=== PATIENT | male | born 1990 ===

== ENCOUNTER 2020-07-08 15:07 | Outpatient (REF) | payer OTHER, SELFPAY | END 2020-07-08 15:08 | disposition home or self-care (01) | LOC: HO.LAB 15:07 | PROVIDERS: PCP Internal Medicine; Visit Provider Internal Medicine | DX: Z20.828 Contact with and (suspected) exposure to other viral communicable diseases (principal) | CPT/HCPCS: 87635 ==

== ENCOUNTER 2020-07-19 16:29 | Outpatient (REF) | payer OTHER, SELFPAY | END 2020-07-19 16:30 | disposition home or self-care (01) | LOC: HO.LAB 16:29 | PROVIDERS: Visit Provider Internal Medicine | DX: Z20.828 Contact with and (suspected) exposure to other viral communicable diseases (principal) | CPT/HCPCS: 87635 ==

== ENCOUNTER 2020-07-26 10:25 | Outpatient (REF) | payer OTHER, SELFPAY | END 2020-07-26 10:26 | disposition home or self-care (01) | LOC: HO.LAB 10:25 | PROVIDERS: PCP Internal Medicine; Visit Provider Internal Medicine | DX: Z20.828 Contact with and (suspected) exposure to other viral communicable diseases (principal) | CPT/HCPCS: U0003 ==

== ENCOUNTER 2020-09-20 09:23 | Outpatient (REF) | payer OTHER, SELFPAY | END 2020-09-20 09:24 | disposition home or self-care (01) | LOC: HO.LAB 09:23 | PROVIDERS: Visit Provider Internal Medicine | DX: Z20.828 Contact with and (suspected) exposure to other viral communicable diseases (principal) | CPT/HCPCS: C9803; U0003 ==

== ENCOUNTER 2020-11-03 09:00 | Outpatient (REF) | payer OTHER, SELFPAY | END 2020-11-03 09:01 | disposition home or self-care (01) | LOC: HO.LAB 09:00 | PROVIDERS: Visit Provider Internal Medicine | DX: Z20.822 Contact with and (suspected) exposure to COVID-19 (principal) | CPT/HCPCS: 36415; C9803; U0003; U0005 ==

== ENCOUNTER 2020-11-19 10:14 | Outpatient (REF) | payer OTHER, SELFPAY | END 2020-11-19 10:15 | disposition home or self-care (01) | LOC: HO.LAB 10:14 | PROVIDERS: Visit Provider Internal Medicine | DX: Z20.822 Contact with and (suspected) exposure to COVID-19 (principal) | CPT/HCPCS: 36415; C9803; U0003; U0005 ==

== ENCOUNTER 2021-01-10 10:22 | Outpatient (REF) | payer OTHER, SELFPAY ==
[2021-01-10 11:07] LABS: COVID-19 Test Negative (Negative)
== END 2021-01-10 10:23 | disposition home or self-care (01) ==
LOC: HO.LAB 10:22
PROVIDERS: Visit Provider Internal Medicine
DX: Z20.822 Contact with and (suspected) exposure to COVID-19 (principal)
CPT/HCPCS: 36415; 87635; C9803

== ENCOUNTER 2023-12-01 18:19 | Emergency (ER) | payer OTHER, SELFPAY ==
--- NOTE | 2023-12-01 18:24 | ED_ITS ---
HPI - General Adult General Chief complaint: Nausea/Vomiting/Diarrhea Stated complaint: Vomiting/Nausea Time Seen by Provider: 12/01/23 18:44 Source: patient Mode of arrival: ambulatory Limitations: no limitations History of Present Illness HPI narrative: Patient is a 33-year-old male presenting to the ED with complaint of nausea and vomiting since this morning. Denies diarrhea. Generalized abdominal pain prior to vomiting, none at this time, headache. Son recently sick with similar symptoms. Denies fevers. Emesis non-bloody, non-bilious. MD complaint: nausea and vomiting Onset (ago): hour(s) Location: abdomen Radiation: non-radiation Severity: mild Quality: aching Associated symptoms: nausea/vomiting Treatments prior to arrival: none Related Data Previous Rx's Medication Instructions Recorded ondansetron 4 mg disintegrating 4 mg PO Q8H PRN nausea and 12/01/23 tablet vomiting #12 tabs Allergies Allergy/AdvReac Type Severity Reaction Status Date / Time No Known Allergies Allergy Verified 12/01/23 18:25 [No Known Allergies*] Review of Systems Review of Systems: As per HPI. Yes all other systems are reviewed and are negative Constitutional: Constitutional: Reports as per HPI [facility] Social History Social History Advance Directives: No Advance Directives Information Provided: No Physical Exam ED Vital Signs: Vital Signs - 24 hr 12/01/23 18:25 Temperature 97.7 F Pulse Rate 106 H Respiratory Rate 16 Blood Pressure 114/68 Pulse Oximetry 98 Oxygen Delivery Method Room Air BMI result Body Mass Index 21.5 Vital signs have been reviewed and appear to be correct. Blood pressure normal. Heart rate slightly tachycardic. Respiratory rate normal. Temperature normal. Oxygen saturation normal. Const General: cooperative, healthy appearing and no acute distress Orientation/consciousness: oriented to person, oriented to place, oriented to time and patient oriented x3 Limitations: no limitations HENMT Head: Yes normocephalic and Yes atraumatic Ears: external ears normal General nose exam: Normal external nose present Face and sinus: Yes face symmetric Mouth: oropharynx normal and moist mucous membranes Throat: Yes uvula midline Eyes Pupils: Equal, round and reactive pupils present Neck Neck: Yes normal visual inspection and Yes supple Resp Effort & Inspection: normal respiratory effort and able to speak in complete sentences Auscultation: clear to auscultation bilaterally Cardio Rate: regular rate Rhythm: regular rhythm Heart sounds: S1 normal heart sound present and S2 normal heart sound present GI Palpation (GI): Soft to palpation and nontender Auscultation: normoactive bowel sounds General: Yes no CVA tenderness Back/Spine/Pelvis Back: no CVA tenderness Skin General skin exam: elasticity normal and turgor normal Neuro General: oriented to person, oriented to place, oriented to time, patient oriented x3, moves all extremities, no focal motor deficits and CN's II-XI intact bilaterally Cranial nerves: Yes Equal, round and reactive pupils present Cognition (Neuro): normal cognition Extrem General: Yes full ROM, Yes no pedal edema and Yes no calf tenderness Psych Mental Status: mental status grossly normal Affect: normal affect Thought process: Normal thought process present Medications Administered Discontinued Medications Generic Name Dose Route Start Last Admin Trade Name Freq PRN Reason Stop Dose Admin Ondansetron HCl 4 mg 12/01/23 18:45 12/01/23 19:11 Ondansetron Odt 4 Mg Tab.Rapdis TRANSLINGU 12/01/23 18:46 4 mg ONCE ONE Administration Medical Decision Making Medical Decision Making [facility] Narrative: Patient is a 33-year-old male presenting to the ED with complaint of nausea and vomiting since this morning. On exam patient is awake, A+Ox3, mildly tachycardic at 106, likely due to dehydration, VS otherwise WNL, afebrile, normal neurological exam without focal deficits, physical exam findings as above. Given reported symptoms and physical exam findings, initial differential includes viral gastroenteritis, flu, Covid. Swabs for Covid, flu, and RSV negative. Patient is nontoxic appearing with stable VS, tolerating small sips of liquids. Feel patient is stable for discharge home, will send prescription for zofran. Advised small sips of clear liquids, then progress to bland diet, then back to regular diet as tolerated. Return precautions discussed at bedside. Patient verbalized understanding of and agreement with plan. Differential Diagnosis Differential Diagnoses: The differential diagnosis associated with the presentation includes As per [facility] Lab Data [facility] Lab Attestation statement: I reviewed the patient's lab results. As per [facility] Labs: Lab Results 12/01/23 Range/Units 18:32 Influenza Type A (PCR) NEGATIVE (Negative) Influenza Type B (PCR) NEGATIVE (Negative) RSV RNA Qual (PCR) NEGATIVE (Negative) SARS-CoV-2 RNA (RT-PCR) NEGATIVE (Negative) External Record Review External record reviewed: Inpatient record, Office record and Outpatient record Prescription Management I considered prescription management with: Other Discharge Plan Discharge Clinical Impression: Gastroenteritis Patient Disposition: Home, Self-Care Instructions: Gastroenteritis (DC), Acute Nausea and Vomiting (ED) Additional Instructions: You have been evaluated in the emergency department today for nausea and vomiting. Your evaluation suggests that your symptoms are most likely due to a viral illness which will improve on it's own with rest and fluids. Remember to drink plenty of fluids at home. You are being prescribed ondansetron which you can use as per the prescription instructions for nausea. Please follow up with your primary care provider within two days. Return to the emergency department if you experience worsening or uncontrolled pain, inability to tolerate fluids by mouth, difficulty breathing, fevers 100.4? F or greater, recurrent vomiting, or any other concerning symptoms. Prescriptions: New ondansetron 4 mg tablet,disintegrating 4 mg PO Q8H PRN (Reason: nausea and vomiting) Qty: 12 0RF Stand Alone Forms: Work/School Release
[2023-12-01 18:25] VITALS: BP 114/68; PULSE 106; RESP 16; TEMP 36.5; O2SAT 98; BMI 21.5
[2023-12-01] MEDS: Ondansetron ODT 4 MG TAB.RAPDIS TRANSLINGU (19:11)
[2023-12-01 19:17] LABS: Influenza A PCR NEGATIVE (Negative); Influenza B PCR NEGATIVE (Negative); Resp Syncy Virus RNA Qual PCR NEGATIVE (Negative); SARS COV2 PCR INHOUSE NEGATIVE (Negative)
== END 2023-12-01 19:38 | disposition home or self-care (01) ==
PROVIDERS: Registered Nurse Emergency; Emergency Provider Emergency Medicine Emergency Medical Services; PCP Internal Medicine
DX: K52.9 Noninfective gastroenteritis and colitis, unspecified (principal); R11.2 Nausea with vomiting, unspecified; R51.9 Headache, unspecified; Z11.52 Encounter for screening for COVID-19; Z20.828 Contact with and (suspected) exposure to other viral communicable diseases
CPT/HCPCS: 0241U; 99282